=== PATIENT | female | born 1930 | race Hispanic/Latino ===

== ENCOUNTER 2019-04-03 20:26 | Observation (INO) | payer OTHER ==
[~2019-04-03] VITALS: Ht 157.5 cm; Wt 92.9 kg
[2019-04-03 21:00] LABS: BASOPHILS % (AUTO) 0.6 % (0.0-5.0); EOSINOPHILS % (AUTO) 0.3 % (0.0-8.0); HEMATOCRIT 40.9 % (36-48); LYMPHOCYTES % (AUTO) 10.1 % (21.0-51.0); MEAN CORPUSCULAR HEMOGLOBIN 32.7 pg (27.0-33.0); MEAN CORPUSCULAR HGB CONC 34.7 g/dL (32.0-36.0); MEAN CORPUSCULAR VOLUME 94.3 fL (79-99); MONOCYTES % (AUTO) 15.1 % (3.0-13.0); NEUTROPHILS % (AUTO) 73.9 % (40.0-77.0); PLATELET COUNT (AUTO) 184 K/uL (130-400); RED BLOOD CELL COUNT(AUTO) 4.33 MIL/uL (4.00-5.50); RED CELL DISTRIBUTION WIDTH 14.2 % (11.0-15.5); WHITE BLOOD COUNT (AUTO) 11.4 K/uL (4.8-10.8)
[2019-04-03 21:15] LABS: INR 1.06 (0.85-1.15); PARTIAL THROMBOPLASTIN TIME 26.8 SEC (26.3-35.5); PROTHROMBIN TIME 10.9 SEC (9.6-11.6)
[2019-04-03 21:23] LABS: B-TYPE NATRIURETIC PEPTIDE 755 pg/mL (0-100)
[2019-04-03] MEDS ORDERED: METHYLPREDNISOLONE SOD SUCC 125MG/2ML VIAL ONE (22:02)
[2019-04-03 22:09] LABS: CARBON DIOXIDE 26 mmol/L (21-32); CHLORIDE 98 mmol/L (101-111); GLOMERULAR FILTR. RATE CALC 55 mL/min (>60); GLUCOSE,RANDOM 154 mg/dL (70-105); POTASSIUM 3.5 mmol/L (3.5-5.1); SODIUM SERUM 135 mmol/L (136-145); UREA NITROGEN, BLOOD 10 mg/dL (7-18)
[2019-04-03] MEDS ORDERED: IPRATROPIUM/ALBUTEROL SULFATE 3 ML SOLUTION IH ONE (22:10)
[2019-04-03 22:20] LABS: ALANINE AMINOTRANSFERASE 20 U/L (12-78); ALBUMIN 3.2 g/dL (3.5-5.0); ASPARTATE AMINOTRANSFERASE 18 U/L (10-37); BILIRUBIN,TOTAL 1.2 mg/dL (0.2-1.0); CREATINE KINASE, TOTAL 124 U/L (21-232); MYOGLOBIN 137 ng/mL (10-92); TOTAL PROTEIN, SERUM 7.7 g/dL (6.0-8.3); TROPONIN I < 0.04 ng/mL (0.00-0.06)
[2019-04-03 23:03] LABS: APPEARANCE,URINE Cloudy (CLEAR); BILIRUBIN,URINE Negative (NEGATIVE); COLOR,URINE Yellow (YELLOW); GLUCOSE, URINE (UA) Negative (NEGATIVE); KETONES,URINE 15 mg/dL (NEGATIVE); LEUKOCYTE ESTERASE ,URINE Negative (NEGATIVE); NITRATE,URINE Negative (NEGATIVE); OCCULT BLOOD,URINE Moderate (NEGATIVE); PH,URINE 5.5 (5.0-8.0); PROTEIN,URINE 300 mg/dL (NEGATIVE)
[2019-04-03 23:21] LABS: BACTERIA,URINE Few /HPF (None Seen); WBC,URINE 0-1 /HPF (0-1)
[2019-04-03] MEDS ORDERED: ACETAMINOPHEN 325 MG TAB PO PRN (23:45)
[2019-04-03] MEDS ORDERED: ONDANSETRON HCL 4 MG/2 ML VIAL IVP PRN (23:45)
[2019-04-03] MEDS: OSELTAMIVIR PHOSPHATE 75 MG CAP PO SCH (23:45)
[2019-04-03] MEDS ORDERED: OSELTAMIVIR PHOSPHATE 75 MG CAP ONE (23:46)
[2019-04-03] MEDS ORDERED: CEFTRIAXONE SODIUM 1 GM ONE (23:46)
[2019-04-03] MEDS ORDERED: SODIUM CHLORIDE 0.9% 50 ML IV ONE (23:47)
[2019-04-04] VITALS (7 sets, daily range): BP systolic 127–167; BP diastolic 74–103
[2019-04-04] MEDS: CEFTRIAXONE SODIUM 1 GM IVP SCH
[2019-04-04] MEDS ORDERED: SODIUM CHLORIDE 0.9% 250 ML IV ONE (00:09)
[2019-04-04] MEDS: AZITHROMYCIN 500MG+NS 250ML 250 ML IV SCH (00:28)
--- NOTE | 2019-04-04 01:00 | NUR ---
CHIEF COMPLAINT COUGH AND COLDS PATIENT COMPLAINED OF CONTINUOUS COUGHING WITH SECRETIONS, ACCORDING TO PATIENT IT IS HARD FOR HER TO EXPECTORATE PHLEGM. DAUGHTER IS ASKING MEDICATIONS TO LOOSEN PHLEGM. SPOKE WITH RT FOR NEB TREATMENT. PAGED FUND CONTROLLER FOR [facility]AN SAVAGE REGARDING PATIENT'S COMPLAINT PENDING FOR CALL BACK
[2019-04-04] MEDS ORDERED: BENZ-51 PO (01:10)
[2019-04-04] MEDS ORDERED: GUAIFENESIN-CODEINE 5 ML SYRUP PO PRN ×2 (01:15→08:30)
[2019-04-04] MEDS: IPRATROPIUM/ALBUTEROL SULFATE 3 ML SOLUTION IH PRN ×2 (01:17→06:46)
[2019-04-04] MEDS ORDERED: ISOS30TA6 PO (01:44)
[2019-04-04] MEDS ORDERED: TORS10TA18 PO (01:44)
[2019-04-04] MEDS ORDERED: PRAV10TA39 PO (01:44)
[2019-04-04] MEDS ORDERED: AMLO5TAB9 PO (01:44)
[2019-04-04] MEDS ORDERED: METO-409 PO (01:44)
[2019-04-04] MEDS ORDERED: BRIM5DRO4 OP (01:44)
[2019-04-04] MEDS ORDERED: GUAIFENESIN-CODEINE 5 ML SYRUP ONE (01:45)
[2019-04-04] MEDS ORDERED: OSEL75CA17 PO (02:14)
[2019-04-04] MEDS ORDERED: PRED15SO12 PO (02:14)
[2019-04-04] MEDS ORDERED: ALBUTEROL HFA IH (02:14)
[2019-04-04] MEDS ORDERED: TIMO5SOL10 OP (02:14)
[2019-04-04 05:02] LABS: HEMATOCRIT 38.5 % (36-48); MEAN CORPUSCULAR HEMOGLOBIN 32.6 pg (27.0-33.0); MEAN CORPUSCULAR HGB CONC 34.7 g/dL (32.0-36.0); PLATELET COUNT (AUTO) 186 K/uL (130-400); RED CELL DISTRIBUTION WIDTH 13.9 % (11.0-15.5); WHITE BLOOD COUNT (AUTO) 10.9 K/uL (4.8-10.8)
--- NOTE | 2019-04-04 08:00 | NUR ---
blind in right eye Addendum: 04/04/19 at 1201 by HAMIDA CHRISTIAN RN RN Amended: Links added.
[2019-04-04] MEDS: OSELTAMIVIR PHOSPHATE 75 MG CAP PO SCH ×2 (09:38→20:29)
--- NOTE | 2019-04-04 12:20 | NUR ---
DR OLVERA ROUNDED ON PATIENT ORDERS FOR RENAL US PLACED
--- NOTE | 2019-04-04 14:50 | NUR ---
DCP CM met with pt discussed dc plans. Pt is semi-independent prior to admission, lives at home with daughter and son in law. Pt has a wheelchair, walker, shower chair. Denies any other equipments/services. Feels safe to go back home, daughter and son in law able to assist with transportation and needs as necessary. Offered possible short term placement rehab, pt undecided for now, pt and family would like to wait for MD recommendations prior to deciding. DC plan to home vs SNF. CM to cont to follow up. Addendum: 04/04/19 at 1452 by ROMEO BURRIS LVN CM Amended: Links added.
--- NOTE | 2019-04-04 15:55 | NUR ---
CM Note: declined placement CM met with pt and daughter. Discussed MD recommendations for possible SNF vs home w/HH. Pt verbalized she wants to go home, daughter state will follow up w/pcp for home w/HH for possible PT at home instead. Declined placement at this time. Primary nurse aware. CM to cont to follow up.
[2019-04-05] MEDS: CEFTRIAXONE SODIUM 1 GM IVP SCH ×2 (03:26→23:08)
[2019-04-05] MEDS: AZITHROMYCIN 500MG+NS 250ML 250 ML IV SCH ×2 (03:26→23:08)
[2019-04-05 03:44] VITALS: BP 133/68
[2019-04-05 06:03] LABS: BASOPHILS % (AUTO) 0.1 % (0.0-5.0); LYMPHOCYTES % (AUTO) 9.5 % (21.0-51.0); MEAN CORPUSCULAR HEMOGLOBIN 32.8 pg (27.0-33.0); MEAN CORPUSCULAR HGB CONC 34.5 g/dL (32.0-36.0); MEAN CORPUSCULAR VOLUME 95.2 fL (79-99); MONOCYTES % (AUTO) 11.9 % (3.0-13.0); NEUTROPHILS % (AUTO) 78.5 % (40.0-77.0); PLATELET COUNT (AUTO) 208 K/uL (130-400); RED CELL DISTRIBUTION WIDTH 13.7 % (11.0-15.5); WHITE BLOOD COUNT (AUTO) 13.9 K/uL (4.8-10.8)
[2019-04-05 06:10] LABS: POTASSIUM 3.8 mmol/L (3.5-5.1)
[2019-04-05] MEDS: IPRATROPIUM/ALBUTEROL SULFATE 3 ML SOLUTION IH PRN ×2 (06:35→18:14)
[2019-04-05 08:00] VITALS: BP 138/74
[2019-04-05] MEDS: OSELTAMIVIR PHOSPHATE 75 MG CAP PO SCH ×2 (09:22→20:11)
[2019-04-05 11:26] VITALS: BP 146/77
[2019-04-05 15:44] VITALS: BP 151/76
[2019-04-05 19:30] VITALS: BP 143/91
[2019-04-05 19:38] LABS: CREATININE 1.1 mg/dL (0.5-1.5); POTASSIUM 3.4 mmol/L (3.5-5.1)
[2019-04-05 23:45] VITALS: BP 144/76
[2019-04-06] MEDS ORDERED: BENZONATATE 100 MG CAPSULE PO PRN (00:45)
[2019-04-06] MEDS ORDERED: ALBUTEROL SULFATE 0.083% 2.5 MG/3 ML INH IH PRN (02:00)
[2019-04-06 03:30] VITALS: BP 148/86
[2019-04-06 05:58] LABS: HEMATOCRIT 41.3 % (36-48); MEAN CORPUSCULAR HEMOGLOBIN 32.2 pg (27.0-33.0); MEAN CORPUSCULAR HGB CONC 33.6 g/dL (32.0-36.0); MEAN CORPUSCULAR VOLUME 95.8 fL (79-99); PLATELET COUNT (AUTO) 206 K/uL (130-400); RED BLOOD CELL COUNT(AUTO) 4.32 MIL/uL (4.00-5.50); RED CELL DISTRIBUTION WIDTH 14.7 % (11.0-15.5); WHITE BLOOD COUNT (AUTO) 10.6 K/uL (4.8-10.8)
[2019-04-06] MEDS: IPRATROPIUM/ALBUTEROL SULFATE 3 ML SOLUTION IH PRN (06:29)
[2019-04-06] MEDS ORDERED: LIDOCAINE HCL-MPF 1% 2ML VIAL IV PRN (06:45)
[2019-04-06] MEDS ORDERED: POTASSIUM CHLORIDE 20MEQ/100ML 100 ML IV PRN (06:45)
[2019-04-06] MEDS ORDERED: POTASSIUM CHLORIDE 10% ELIXIR 20 MEQ/15 ML UDCUP PO PRN (06:45)
[2019-04-06] MEDS: POTASSIUM CHLORIDE 20 MEQ ERTAB PO PRN ×2 (06:53→12:57)
[2019-04-06 08:00] VITALS: BP 137/82
[2019-04-06] MEDS ORDERED: AMLODIPINE BESYLATE 5 MG TAB PO SCH (09:00)
[2019-04-06] MEDS ORDERED: BRIMONIDINE TARTRATE 0.2% 5 ML BOTTLE OP SCH (09:00)
[2019-04-06] MEDS ORDERED: TIMOLOL MALEATE OP SCH (09:00)
[2019-04-06] MEDS ORDERED: PREDNISOLONE PO SCH (09:00)
[2019-04-06] MEDS ORDERED: TORSEMIDE 20 MG TAB PO SCH (09:00)
[2019-04-06] MEDS ORDERED: ISOSORBIDE MONO 30MG TAB SR PO SCH (09:00)
[2019-04-06] MEDS ORDERED: ***HM***Metoprolol Succinate 100 MG PO SCH (09:00)
[2019-04-06] MEDS: OSELTAMIVIR PHOSPHATE 75 MG CAP PO SCH (09:25)
[2019-04-06 11:47] VITALS: BP 113/61
[2019-04-06] MEDS ORDERED: IPRATROPIUM 0.5 MG/2.5 ML INH IH SCH (12:00)
--- NOTE | 2019-04-06 14:25 | NUR ---
DISCHARGE INSTRUCTIONS GIVEN TO PATIENT AND PATIENTS DAUGHTER. MADE AWARE OF NEW RX FOR ZPACK AND HOW TO CONTINUE TAKING TAMIFLU. BOTH VOICED UNDERSTANDING. IV TO LEFT HAND REMOVED WITH NO COMPLICATIONS. AT THIS TIME PATIENT AAOX3, DENIES ANY PAIN OR SHORTNESS OF BREATH NO SIGNS AND SYMPTOMS OF ACUTE DISTRESS NOTED. TO BE TRANSPORTED HOME BY DAUGHTER
[2019-04-06] MEDS ORDERED: ***HM***Pravastatin Sodium 10 MG PO SCH (21:00)
== END 2019-04-06 14:45 | disposition home or self-care (01) ==
LOC: EDH 20:26 → EDHIP 23:11 → 3DH 23:33
PROVIDERS: ADMIT Internal Medicine Critical Care Medicine; ATTEND Internal Medicine Critical Care Medicine
DX: J10.00 Influenza due to other identified influenza virus with unspecified type of pneumonia (principal); J98.11 Atelectasis; I48.91 Unspecified atrial fibrillation; R31.9 Hematuria, unspecified; R80.9 Proteinuria, unspecified; I13.0 Hypertensive heart and chronic kidney disease with heart failure and stage 1 through stage 4 chronic kidney disease, or unspecified chronic kidney disease; I50.32 Chronic diastolic (congestive) heart failure; E11.22 Type 2 diabetes mellitus with diabetic chronic kidney disease; N18.9 Chronic kidney disease, unspecified; I07.1 Rheumatic tricuspid insufficiency; M19.90 Unspecified osteoarthritis, unspecified site; E66.01 Morbid (severe) obesity due to excess calories; E78.5 Hyperlipidemia, unspecified; I48.92 Unspecified atrial flutter; D64.9 Anemia, unspecified; Z90.710 Acquired absence of both cervix and uterus; E78.00 Pure hypercholesterolemia, unspecified; Z90.49 Acquired absence of other specified parts of digestive tract; Z79.899 Other long term (current) drug therapy; Z68.37 Body mass index [BMI] 37.0-37.9, adult
CPT/HCPCS: 36415 ×4; 71045 ×2; 71046; 76770; 80048 ×3; 80053; 81001; 82550; 83605; 83874; 83880; 84145; 84484; 85025 ×2; 85027 ×2; 85610; 85730; 87040 ×2; 87088; 87804 ×2; 93005; 94640 ×6; 94664; 96365; 96366; 96375; 96376; 99284; G0378 ×62; J0456 ×3; J0696 ×3; J2930; J7030